=== PATIENT | female | born 1990 | race Caucasian/White ===

== ENCOUNTER 2017-05-29 21:30 | Emergency (ER) | payer OTHER ==
[~2017-05-29] VITALS: Ht 157.5 cm; Wt 83.9 kg
[2017-05-29 21:35] VITALS: BP 125/75
--- NOTE | 2017-05-29 21:43 | NUR ---
TO LOBBY AMB, V/S STABLE,A/W FOR BED, LETICIA NOTED
[2017-05-29 23:09] LABS: BASOPHILS # (AUTO) 0.2 K/uL (0.00-0.22); BASOPHILS % (AUTO) 2.1 % (0.0-2.0); EOSINOPHILS # (AUTO) 0.2 K/uL (0-0.4); HEMATOCRIT 42.8 % (36-48); LYMPHOCYTES # (AUTO) 3.2 K/uL (2.5-16.5); LYMPHOCYTES % (AUTO) 33.5 % (20.5-51.1); MEAN CORPUSCULAR HEMOGLOBIN 28 pg (27-31); MEAN CORPUSCULAR HGB CONC 33 g/dL (33-37); MEAN CORPUSCULAR VOLUME 86 fL (80-94); MONOCYTES # (AUTO) 0.5 K/uL (0.8-1.0); MONOCYTES % (AUTO) 5.5 % (1.7-9.3); NEUTROPHILS # (AUTO) 5.5 K/uL (1.8-7.7); NEUTROPHILS % (AUTO) 56.9 % (42.2-75.2); PLATELET COUNT (AUTO) 304 K/uL (140-450); RED BLOOD CELL COUNT(AUTO) 4.99 MIL/uL (4.20-5.40); RED CELL DISTRIBUTION WIDTH 12.7 % (11.6-13.7); WHITE BLOOD COUNT (AUTO) 9.6 K/uL (4.8-10.8)
[2017-05-29 23:25] LABS: ANION GAP 11.5 (8-16); CARBON DIOXIDE 28.3 mmol/L (21-32); CREATININE 0.7 mg/dL (0.6-1.3); POTASSIUM 3.8 mmol/L (3.5-5.1)
[2017-05-29 23:31] LABS: ALBUMIN 3.7 g/dL (3.4-5.0); TOTAL BILIRUBIN 0.2 mg/dL (0.0-1.0)
[2017-05-29 23:41] LABS: PROTHROMBIN TIME 10.1 secs (10.8-13.4)
[2017-05-30 00:25] VITALS: BP 125/75
--- NOTE | 2017-05-30 00:25 | NUR ---
PATIENT PRESENTS TO ED WITH VAG BLEEDING,FOR 3 DAYS, WITH FIBROIDS PT DENIES N/V/D; SKIN IS PINK/WARM/DRY; AAOX4 WITH EVEN AND STEADY GAIT; LUNGS CLEAR BL; HR EVEN AND REGULAR; PT DENIES ANY FEVER, CP, SOB, OR COUGH AT THIS TIME; PATIENT STATES PAIN OF 10/10 AT THIS TIME; VSS; PATIENT POSITIONED FOR COMFORT; HOB ELEVATED; BEDRAILS UP X2; BED DOWN. ER MD MADE AWARE OF PT STATUS.
[2017-05-30] MEDS: KETOROLAC 60 MG/2 ML VIAL IM ONE (01:29)
--- NOTE | 2017-05-30 01:30 | NUR ---
IM MEDS GIVEN-NADR AT THIS TIME
--- NOTE | 2017-05-30 01:49 | NUR ---
Patient discharged with v/s stable. Written and verbal after care instructions given and explained. Patient alert, oriented and verbalized understanding of instructions. Ambulatory with steady gait. All questions addressed prior to discharge. ID band removed. Patient advised to follow up with PMD. Rx of PROVERA given. Patient educated on indication of medication including possible reaction and side effects. Opportunity to ask questions provided and answered.
== END 2017-05-30 01:50 | disposition home or self-care (01) ==
LOC: MED 21:30
DX: D25.9 Leiomyoma of uterus, unspecified (principal)
CPT/HCPCS: 36415; 80053; 81002; 81025; 85025; 85610; 85730; 96372; 99284; J1885

== ENCOUNTER 2017-08-01 06:35 | Day surgery (SDC) | payer OTHER ==
[~2017-08-01] VITALS: Ht 157.5 cm; Wt 84.8 kg
[2017-08-01] MEDS ORDERED: ACETAMINOPHEN/CODEINE 300/30MG 1 TAB PO PRN (07:25)
[2017-08-01] MEDS ORDERED: IBUPROFEN 800 MG TAB PO PRN (07:25)
[2017-08-01] MEDS ORDERED: MORPHINE SULFATE 4 MG/ML SYR IM/IVP PRN (07:25)
[2017-08-01] MEDS ORDERED: ONDANSETRON 4 MG/2 ML VIAL IVP PRN (07:25)
[2017-08-01] MEDS ORDERED: ONDANSETRON 4 MG/2 ML VIAL IVP ONE (09:40)
[2017-08-01] MEDS ORDERED: SEVOFLURANE 250 ML BTL INH ONE (09:40)
[2017-08-01] MEDS ORDERED: PROPOFOL 200 MG/20 ML VIAL IV ONE (09:40)
[2017-08-01] MEDS ORDERED: MIDAZOLAM 2 MG/2 ML VIAL ONE (09:48)
[2017-08-01] MEDS ORDERED: fentaNYL 0.05 MG/ML VIAL ONE (09:48)
[2017-08-01] MEDS ORDERED: MORPHINE SULFATE 2 MG/ML SYR IVP PRN ×2 (10:50→11:10)
[2017-08-01] MEDS ORDERED: MIDAZOLAM 2 MG/2 ML VIAL IV ONE ×2 (10:50→11:10)
[2017-08-01] MEDS ORDERED: MORPHINE SULFATE 4 MG/ML SYR IVP PRN ×4 (10:50→11:10)
[2017-08-01] MEDS ORDERED: MORPHINE SULFATE 4 MG/ML SYR ONE (12:02)
== END 2017-08-01 13:00 | disposition home or self-care (01) ==
LOC: MDS 06:35 → MMU 06:48 → MDS 13:00
PROVIDERS: ATTEND Obstetrics & Gynecology
DX: N92.1 Excessive and frequent menstruation with irregular cycle (principal); E66.01 Morbid (severe) obesity due to excess calories; Z98.51 Tubal ligation status; Z79.899 Other long term (current) drug therapy; Z91.09 Other allergy status, other than to drugs and biological substances; Z68.35 Body mass index [BMI] 35.0-35.9, adult
CPT/HCPCS: J2250; J2270; J2405; J2704; J3010